=== PATIENT | male | born 1975 | race Caucasian/White ===

== ENCOUNTER → 2016-12-10 | Outpatient (CLI) | payer OTHER ==
[2016-12-10 15:52] VITALS: BP 148/87; PULSE 73; TEMP 97.8; BMI 81.3
--- NOTE | 2016-12-10 16:29 | P.HPBAR ---
Bariatric H&P - History & Physicial H&P Date: 12/10/16 History & Physicial: Visit/CC: initial visit Patient initial contact: Initial weight: Initial weight in pounds: Height: 5 ft 9 in Initial BMI: Last weight: Current weight: 249.839 kg Current weight in pounds: 550.80 Current BMI: 81.3 [place] body weight (based on NIH guidelines): 72.575 kg Excess body weight loss: The patient is a 41 year-old M who presents for Bariatric Assessment. The patient presents today for sleeve gastrectomy consultation. He's had lifetime problems obesity. His current weight is 550 pounds. His BMI is 81. Review of Systems Constitutional: Reports as per HPI Past Medical History Past Medical History: No Reported History History of Any Multi-Drug Resistant Organisms: None Reported Past Surgical History: No Surgical Hx Reported Past Anesthesia/Blood Transfusion Reactions: No Reported Reaction Past Psychological History: No Psychological Hx Reported Smoking Status: Former smoker Past Alcohol Use History: None Reported Past Drug Use History: None Reported Surgical - Exam Vital Signs Temp Pulse BP 97.8 F 73 148/87 12/10/16 15:47 12/10/16 15:47 12/10/16 15:47 - General well developed, no distress - Eyes PERRL - ENT normal pinna - Neck no masses - Respiratory normal expansion - Cardiovascular Rhythm: regular - Abdomen Abdomen: soft, non tender Bariatric Assessment & Plan Plan: Super morbid obesity with BMI of 81. Patient will attempt to lose some weight prior to surgery. He will be scheduled see a psychologist and his family doctor. He'll follow-up in one month. Bariatric Checklist Checklist: Plan: Checklist: EGD: 1. Hiatal hernia: 2. H. Pylori: HgbA1c: Vitamin D: Smoking: Former smoker Primary care physician referral: Psychiatry clearance: Cardiology clearance: Sleep study: Diet journal: VTE risk score: VTE risk level: Rehab needs at discharge:
== END | disposition home or self-care (01) ==
LOC: BARWHC3 14:12
PROVIDERS: ATTEND Surgery
DX: Z01.818 Encounter for other preprocedural examination (principal); E66.01 Morbid (severe) obesity due to excess calories; Z68.45 Body mass index [BMI] 70 or greater, adult; Z87.891 Personal history of nicotine dependence
CPT/HCPCS: 99211

== ENCOUNTER → 2017-01-07 | Outpatient (CLI) | payer OTHER ==
[2017-01-07 18:07] VITALS: BP 154/71; PULSE 76; RESP 18; TEMP 98; BMI 78.4
--- NOTE | 2017-01-08 08:09 | P.HPBAR ---
Bariatric H&P - History & Physicial H&P Date: 01/07/17 History & Physicial: Visit/CC: FANNY, f/u prospective sleeve Patient initial contact: Initial weight: 249.839 kg Initial weight in pounds: 550.80 Height: 5 ft 9 in Initial BMI: 81.3 Last weight: Current weight: 240.903 kg Current weight in pounds: 531.10 Current BMI: 78.4 [place] body weight (based on NIH guidelines): 72.575 kg Excess body weight loss: 5.0% The patient is a 41 year-old M who presents for Bariatric Assessment. Patient presents for bariatric follow. He has lost 19 pounds since his last visit. He has been actively dieting. I discussed the patient had like him to lose 40-70 pounds before surgery. Review of Systems Constitutional: Reports as per HPI Past Medical History Past Medical History: No Reported History History of Any Multi-Drug Resistant Organisms: None Reported Past Surgical History: No Surgical Hx Reported Past Anesthesia/Blood Transfusion Reactions: No Reported Reaction Past Psychological History: No Psychological Hx Reported Smoking Status: Former smoker Past Alcohol Use History: None Reported Past Drug Use History: None Reported Surgical - Exam Vital Signs Temp Pulse Resp BP 98.0 F 76 18 154/71 01/07/17 17:53 01/07/17 17:53 01/07/17 17:53 01/07/17 17:53 - General well developed, no distress - Eyes PERRL - Respiratory normal expansion - Cardiovascular Rhythm: regular - Abdomen Abdomen: soft, non tender Bariatric Assessment & Plan Plan: Super morbid obesity with BMI of 78. Patient will follow-up in one month. He will continue diet. He will need to be authorized for laparoscopic sleeve gastrectomy. Bariatric Checklist Checklist: Plan: Checklist: EGD: 1. Hiatal hernia: 2. H. Pylori: HgbA1c: Vitamin D: Smoking: Former smoker Primary care physician referral: Greer (Romeo) Psychiatry clearance: Cardiology clearance: Sleep study: Diet journal: VTE risk score: VTE risk level: Rehab needs at discharge:
== END ==
LOC: BARWHC3 14:24
PROVIDERS: ATTEND Surgery
DX: E66.01 Morbid (severe) obesity due to excess calories (principal); Z68.45 Body mass index [BMI] 70 or greater, adult; Z87.891 Personal history of nicotine dependence
CPT/HCPCS: 99211

== ENCOUNTER → 2017-02-04 | Outpatient (CLI) | payer OTHER ==
[2017-02-04 15:45] VITALS: BP 129/73; PULSE 60; RESP 16; TEMP 97.9
[2017-02-04 15:49] VITALS: BMI 73.5
--- NOTE | 2017-02-04 16:00 | P.HPBAR ---
Bariatric H&P - History & Physicial H&P Date: 02/04/17 History & Physicial: Visit/CC: Wt check Patient initial contact: Initial weight: 249.839 kg Initial weight in pounds: 550.80 Height: 5 ft 9 in Initial BMI: 81.3 Last weight: Current weight: 226.087 kg Current weight in pounds: 498.00 Current BMI: 73.5 [place] body weight (based on NIH guidelines): 72.575 kg Excess body weight loss: 13.5% The patient is a 42 year-old M who presents for Bariatric Assessment. The patient presents today for bariatric follow-up. He has lost 50 pounds since her initial consultation. The patient has been mainly on a low carb diet. He denies any significant problems with his low caloric/carbonated diet. Past Medical History Past Medical History: No Reported History History of Any Multi-Drug Resistant Organisms: None Reported Past Surgical History: No Surgical Hx Reported Past Anesthesia/Blood Transfusion Reactions: No Reported Reaction Past Psychological History: No Psychological Hx Reported Smoking Status: Former smoker Past Alcohol Use History: None Reported Past Drug Use History: None Reported Surgical - Exam Vital Signs Temp Pulse Resp BP 97.9 F 60 16 129/73 02/04/17 15:39 02/04/17 15:39 02/04/17 15:39 02/04/17 15:39 - General well developed, no distress - Eyes PERRL - ENT normal pinna - Neck no masses - Respiratory normal expansion - Cardiovascular Rhythm: regular - Abdomen Abdomen: soft, non tender Bariatric Assessment & Plan Plan: The patient is doing well. He'll continue his low carbohydrate/calorie diet. He'll follow-up in one month for recheck. He will scheduled for laparoscopic sleeve gastrectomy once his authorizations completed. Bariatric Checklist Checklist: Plan: Checklist: EGD: 1. Hiatal hernia: 2. H. Pylori: HgbA1c: Vitamin D: Smoking: Former smoker Primary care physician referral: Greer (Romeo) Psychiatry clearance: Cardiology clearance: Sleep study: Diet journal: VTE risk score: VTE risk level: Rehab needs at discharge:
== END | disposition home or self-care (01) ==
LOC: BARWHC3 14:14
PROVIDERS: ATTEND Surgery
DX: Z09 Encounter for follow-up examination after completed treatment for conditions other than malignant neoplasm (principal); Z87.891 Personal history of nicotine dependence
CPT/HCPCS: 99211

== ENCOUNTER → 2017-03-04 | Outpatient (CLI) | payer OTHER ==
[2017-03-04 14:05] VITALS: BP 146/75; PULSE 61; RESP 16; TEMP 98; BMI 74.7
--- NOTE | 2017-03-04 16:08 | P.HPBAR ---
Bariatric H&P - History & Physicial H&P Date: 03/04/17 History & Physicial: Visit/CC: Patient initial contact: Initial weight: 249.839 kg Initial weight in pounds: 550.80 Height: 5 ft 9 in Initial BMI: 81.3 Last weight: Current weight: 229.688 kg Current weight in pounds: 506.00 Current BMI: 74.7 [place] body weight (based on NIH guidelines): 72.575 kg Excess body weight loss: 11.4% The patient is a 42 year-old M who presents for Bariatric Assessment. She presents today for bariatric follow-up. He has gained 8 pounds last visit. Patient states he had increased carbohydrate intake. Past Medical History Past Medical History: No Reported History History of Any Multi-Drug Resistant Organisms: None Reported Past Surgical History: No Surgical Hx Reported Past Anesthesia/Blood Transfusion Reactions: No Reported Reaction Past Psychological History: No Psychological Hx Reported Smoking Status: Former smoker Past Alcohol Use History: None Reported Past Drug Use History: None Reported Surgical - Exam Vital Signs Temp Pulse Resp BP 98.0 F 61 16 146/75 03/04/17 13:54 03/04/17 13:54 03/04/17 13:54 03/04/17 13:54 - General well developed, no distress - Eyes PERRL - ENT normal pinna - Neck no masses - Respiratory normal expansion - Cardiovascular Rhythm: regular - Abdomen Abdomen: soft Bariatric Assessment & Plan Plan: The patient will improve his diet. He will decreased carbohydrate take and try to get more exercise. No palpable 1 month. We discussed the importance of losing weight before his sleeve gastrectomy. Bariatric Checklist Checklist: Plan: Checklist: EGD: 1. Hiatal hernia: 2. H. Pylori: HgbA1c: Vitamin D: Smoking: Former smoker Primary care physician referral: Greer (Romeo) Psychiatry clearance: Cardiology clearance: Sleep study: Diet journal: VTE risk score: VTE risk level: Rehab needs at discharge:
== END | disposition home or self-care (01) ==
LOC: BARWHC3 13:39
PROVIDERS: ATTEND Surgery
DX: Z48.815 Encounter for surgical aftercare following surgery on the digestive system (principal); Z98.84 Bariatric surgery status; Z87.891 Personal history of nicotine dependence
CPT/HCPCS: 99211

== ENCOUNTER → 2017-04-08 | Outpatient (CLI) | payer OTHER ==
[2017-04-08 15:12] VITALS: BP 151/75; PULSE 59; RESP 18; TEMP 97.7; BMI 74.1
--- NOTE | 2017-04-22 17:00 | P.HPBAR ---
Bariatric H&P - History & Physicial H&P Date: 04/08/17 History & Physicial: Visit/CC: Working on criteria Patient initial contact: Initial weight: 249.839 kg Initial weight in pounds: 550.80 Height: 5 ft 9 in Initial BMI: 81.3 Last weight: Current weight: 227.788 kg Current weight in pounds: 502.00 Current BMI: 74.1 [place] body weight (based on NIH guidelines): 72.575 kg Excess body weight loss: 12.4% The patient is a 42 year-old M who presents for Bariatric Assessment. Patient presents for preoperative sleeve constipation. He is doing quite well. He has lost 48 pounds since he started coming to the bandage clinic. Past Medical History Past Medical History: No Reported History History of Any Multi-Drug Resistant Organisms: None Reported Past Surgical History: No Surgical Hx Reported Past Anesthesia/Blood Transfusion Reactions: No Reported Reaction Past Psychological History: No Psychological Hx Reported Smoking Status: Former smoker Surgical - Exam Vital Signs Temp Pulse Resp BP 97.7 F 59 L 18 151/75 04/08/17 15:08 04/08/17 15:08 04/08/17 15:08 04/08/17 15:08 - General well developed, no distress - Abdomen Abdomen: soft, non tender Bariatric Assessment & Plan Plan: Super morbid obesity, BMI 74. Patient will be scheduled for EGD. We anticipate doing his sleeve gastrectomy in the near future. Bariatric Checklist Checklist: Plan: Checklist: EGD: 1. Hiatal hernia: 2. H. Pylori: HgbA1c: Vitamin D: Smoking: Former smoker Primary care physician referral: Greer (Romeo) Psychiatry clearance: Cardiology clearance: Sleep study: Diet journal: VTE risk score: VTE risk level: Rehab needs at discharge:
== END | disposition home or self-care (01) ==
LOC: BARWHC3 13:52
PROVIDERS: ATTEND Surgery
DX: Z01.818 Encounter for other preprocedural examination (principal); E66.01 Morbid (severe) obesity due to excess calories; Z87.891 Personal history of nicotine dependence; Z68.45 Body mass index [BMI] 70 or greater, adult
CPT/HCPCS: 99211

== ENCOUNTER 2017-04-22 08:49 | Day surgery (SDC) | payer OTHER ==
[2017-04-18 11:13] VITALS: BMI 73.8
[~2017-04-22 08:49] MED LIST: LACTATED RINGERS 1,000 ML IV SCH
[2017-04-22] MEDS ORDERED: LIDOCAINE 1% 20 ML VIAL (10MG/ML) FOR IV START INTRADERMA ONE (10:25)
[2017-04-22 10:37] VITALS: RESP 18; TEMP 96.6
[2017-04-22] MEDS ORDERED: KETAMINE 10 MG/ML 20 ML VIAL ONE (10:57)
[2017-04-22] MEDS ORDERED: GLYCOPYRROLATE 0.2 MG/ML 2 ML VIAL ONE (10:57)
[2017-04-22] MEDS ORDERED: PROPOFOL 10 MG/ML 20 ML VIAL IV ONE (10:57)
[2017-04-22] MEDS ORDERED: LIDOCAINE 1% INJ 10MG/ML (20 ML MDV) ONE (10:57)
--- NOTE | 2017-04-22 10:59 | P.GSHP ---
History of Present Illness H&P Date: 04/22/17 Chief Complaint: GERD, morbid obesity This is a 42-year-old male presents today for EGD. He presents today for workup of gastric sleeve. He's had history of GERD. His BMI 74. Past Medical History Past Medical History: No Reported History Additional Past Medical History / Comment(s): EDEMA LOWER EXTREMITIES. History of Any Multi-Drug Resistant Organisms: None Reported Past Surgical History: No Surgical Hx Reported Additional Past Surgical History / Comment(s): SURGERY LEFT LEG FOR CELLULITIS ( 10 YRS AGO) Past Anesthesia/Blood Transfusion Reactions: No Reported Reaction Past Psychological History: Depression Smoking Status: Former smoker Past Alcohol Use History: Rare Additional Past Alcohol Use History / Comment(s): QUIT SMOKING 10 YRS AGO. SMOKED <PPD. SMOKED APPROX 10 YRS. Past Drug Use History: None Reported - Past Family History Father Family Medical History: Cancer Additional Family Medical History / Comment(s): PROSTATE CANCER Medications and Allergies Home Medications Medication Instructions Recorded Confirmed Type Furosemide [Lasix] 1 tab PO BID 12/10/16 04/22/17 History Potassium (Unknown Dose) 1 dose PO BID 04/18/17 04/22/17 History Allergies Allergy/AdvReac Type Severity Reaction Status Date / Time amoxicillin Allergy Unknown Rash/Hives Verified 04/22/17 10:39 cephalexin [From Keflex] Allergy Unknown Rash/Hives Verified 04/22/17 10:39 Penicillins Allergy Unknown Rash/Hives Verified 04/22/17 10:39 Surgical - Exam Vital Signs Temp Pulse Resp BP Pulse Ox 96.6 F L 63 18 122/65 99 04/22/17 10:20 04/22/17 10:20 04/22/17 10:20 04/22/17 10:20 04/22/17 10:20 - General well developed, no distress - Eyes PERRL - ENT normal pinna - Neck no masses - Respiratory normal expansion - Cardiovascular Rhythm: regular - Abdomen Abdomen: soft, non tender Assessment and Plan Plan: GERD. We will perform EGD.
--- NOTE | 2017-04-22 11:12 | P.OP ---
Date of Procedure: 04/22/17 Preoperative Diagnosis: Morbid obesity GERD Postoperative Diagnosis: Morbid obesity Mild antral gastritis No evidence of hiatal hernia Procedure(s) Performed: EGD Implants: Anesthesia: MAC Surgeon: You Alejandro Pathology: other (Antrum) Condition: stable Disposition: PACU Indications for Procedure: Operative Findings: Description of Procedure: The patient's placed on the endoscopy table in the lateral position. He received IV sedation. The gastroscope some placed oropharynx past esophagus and stomach. Scope was then placed through the pylorus. Scope was then withdrawn. The first and second portion of duodenum appeared normal. Scope was then brought back and the antrum and this was mildly inflamed. A biopsies was performed. The scope was unretroflexed and remainder stomach appeared normal. The GE junction was at 47 is. The distal esophagus appeared mildly inflamed a biopsies performed. The proximal esophagus appeared normal. Scope was withdrawn for patient.
[2017-04-22 11:30] VITALS: BP 130/71; PULSE 62
== END 2017-04-22 11:54 | disposition home or self-care (01) ==
LOC: ORWHC2ENDO 08:49
PROVIDERS: ATTEND Surgery
DX: K21.0 Gastro-esophageal reflux disease with esophagitis (principal); K29.50 Unspecified chronic gastritis without bleeding; E66.01 Morbid (severe) obesity due to excess calories; Z68.45 Body mass index [BMI] 70 or greater, adult; Z88.0 Allergy status to penicillin; Z88.1 Allergy status to other antibiotic agents; Z79.899 Other long term (current) drug therapy; Z87.891 Personal history of nicotine dependence
CPT/HCPCS: 43239; 88305; 88342; J2001; J2704

== ENCOUNTER → 2017-05-06 | Outpatient (CLI) | payer OTHER ==
[2017-05-06 12:37] VITALS: BMI 74.7
[2017-05-06 13:08] VITALS: BP 145/70; PULSE 63; TEMP 97.7
--- NOTE | 2017-05-06 17:21 | P.HPBAR ---
Bariatric H&P - History & Physicial H&P Date: 05/06/17 History & Physicial: Visit/CC: preop visit Patient initial contact: Initial weight: 249.839 kg Initial weight in pounds: 550.80 Height: 5 ft 9 in Initial BMI: 81.3 Last weight: Current weight: 229.563 kg Current weight in pounds: 506.10 Current BMI: 74.7 [place] body weight (based on NIH guidelines): 72.575 kg Excess body weight loss: 11.4% The patient is a 42 year-old M who presents for Bariatric Assessment. Patient resents today for morbid obesity follow-up. He will be scheduled for sleeve gastrectomy hopefully the next few months. The patient is a scheduled for cardiac clearance. Past Medical History Past Medical History: No Reported History Additional Past Medical History / Comment(s): EDEMA LOWER EXTREMITIES. History of Any Multi-Drug Resistant Organisms: None Reported Past Surgical History: No Surgical Hx Reported Additional Past Surgical History / Comment(s): SURGERY LEFT LEG FOR CELLULITIS ( 10 YRS AGO) Past Anesthesia/Blood Transfusion Reactions: No Reported Reaction Past Psychological History: Depression Smoking Status: Former smoker Past Alcohol Use History: Rare Additional Past Alcohol Use History / Comment(s): QUIT SMOKING 10 YRS AGO. SMOKED <PPD. SMOKED APPROX 10 YRS. Past Drug Use History: None Reported - Past Family History Father Family Medical History: Cancer Additional Family Medical History / Comment(s): PROSTATE CANCER Surgical - Exam Vital Signs Temp Pulse BP 97.7 F 63 145/70 05/06/17 13:04 05/06/17 13:04 05/06/17 13:04 - General well developed, no distress - Eyes PERRL - Abdomen Abdomen: soft, non tender Bariatric Assessment & Plan Plan: RBC BMI 75. Patient will be scheduled for sleeve gastrectomy in the next few weeks. The patient will obtain cardiac clearance. I went over the risks and benefits of procedure including conversion O procedure and injury to the stomach liver spleen vagotomy dysphagia recurrent GERD symptoms. We'll also discuss and possible issues with the gastric staple line such as bleeding, perforation obstruction. Bariatric Checklist Checklist: Plan: Checklist: EGD: 1. Hiatal hernia: 2. H. Pylori: HgbA1c: Vitamin D: Smoking: Former smoker Primary care physician referral: Percy Muse) Psychiatry clearance: Cardiology clearance: Sleep study: Diet journal: VTE risk score: VTE risk level: Rehab needs at discharge:
== END | disposition home or self-care (01) ==
LOC: BARWHC3 08:29
PROVIDERS: ATTEND Surgery
DX: E66.01 Morbid (severe) obesity due to excess calories (principal); K21.9 Gastro-esophageal reflux disease without esophagitis; Z68.45 Body mass index [BMI] 70 or greater, adult; Z87.891 Personal history of nicotine dependence
CPT/HCPCS: 97804; G0463; 99211

== ENCOUNTER → 2017-05-16 | Outpatient (CLI) | payer OTHER ==
[2017-05-16 11:03] LABS: CH 31.4; CHCM 33.3; HCT 43.2 % (39.0-53.0); HDW 2.86; HGB 14.2 gm/dL (13.0-17.5); MCH 31.1 pg (25.0-35.0); MCHC 32.9 g/dL (31.0-37.0); MCV 94.8 fL (80.0-100.0); Mean Platelet Volume 7.4; RBC 4.56 m/uL (4.30-5.90); RDW 14.5 % (11.5-15.5); WBC 6.8 k/uL (3.8-10.6)
[2017-05-16 11:20] LABS: Anion Gap 10 mmol/L; Blood Urea Nitrogen 17 mg/dL (9-20); Calcium 8.8 mg/dL (8.4-10.2); Carbon Dioxide 30 mmol/L (22-30); Chloride 102 mmol/L (98-107); Glucose 79 mg/dL (74-99); Non-African American GFR(MDRD) >60 (>60 ml/min/1.73 sqM); Potassium 4.2 mmol/L (3.5-5.1); Sodium 142 mmol/L (137-145)
== END | disposition home or self-care (01) ==
LOC: LABWHC1 10:34
PROVIDERS: ATTEND Internal Medicine Interventional Cardiology
DX: Z01.812 Encounter for preprocedural laboratory examination (principal); I48.91 Unspecified atrial fibrillation
CPT/HCPCS: 36415; 80048; 84439; 84443; 85027

== ENCOUNTER → 2017-07-01 | Outpatient (CLI) | payer OTHER ==
[2017-07-01 14:25] LABS: Basophils # (A) 0.1 k/uL (0-0.2); Basophils % (A) 1 %; CH 30.4; CHCM 33.4; Eosinophils # (A) 0.2 k/uL (0-0.7); Eosinophils % (A) 2 %; HCT 41.7 % (39.0-53.0); HDW 2.81; HGB 13.6 gm/dL (13.0-17.5); Luc % (Auto) 3; Lymphocytes # (A) 1.3 k/uL (1.0-4.8); Lymphocytes % (A) 19 %; MCH 29.8 pg (25.0-35.0); MCHC 32.6 g/dL (31.0-37.0); MCV 91.3 fL (80.0-100.0); Mean Platelet Volume 7.6; Monocytes # (A) 0.5 k/uL (0-1.0); Monocytes % (A) 8 %; Neutrophils # (A) 4.5 k/uL (1.3-7.7); Neutrophils % (A) 67 %; RBC 4.57 m/uL (4.30-5.90); RDW 13.8 % (11.5-15.5); WBC 6.8 k/uL (3.8-10.6); WBC (Perox) 7.25
[2017-07-01 14:47] LABS: ALT 28 U/L (21-72); AST 32 U/L (17-59); Alkaline Phosphatase 76 U/L (38-126); Anion Gap 8 mmol/L; Blood Urea Nitrogen 19 mg/dL (9-20); Carbon Dioxide 27 mmol/L (22-30); Chloride 103 mmol/L (98-107); Glucose 73 mg/dL (74-99); Non-African American GFR(MDRD) >60 (>60 ml/min/1.73 sqM); Potassium 4.2 mmol/L (3.5-5.1); Sodium 138 mmol/L (137-145); Total Bilirubin 0.8 mg/dL (0.2-1.3); Total Protein 7.1 g/dL (6.3-8.2)
== END | disposition home or self-care (01) ==
LOC: LABPAT 13:48
PROVIDERS: ATTEND Surgery
DX: Z01.812 Encounter for preprocedural laboratory examination (principal)
CPT/HCPCS: 36415; 80053; 85025

== ENCOUNTER 2017-07-25 06:51 | Inpatient (IN) | payer OTHER ==
[2017-07-17 09:13] VITALS: BMI 72.0
[~2017-07-25 06:51] MED LIST changes: +CLINDAMYCIN 900 MG in DEXTROSE 5% IN WATER 50 ML IVPB ONE; +DEXAMETHASONE SOD PHOSPHATE 10 MG/ML 1 ML VIAL IV ONE; +ENOXAPARIN 40 MG/0.4 ML SYRINGE SQ ONE; +GENTAMICIN 500 MG in SODIUM CHLORIDE 0.9% 100 ML IVPB ONE; -LACTATED RINGERS 1,000 ML IV SCH; +ONDANSETRON 4 MG/2 ML VIAL IVP ONE
[2017-07-25] MEDS: LACTATED RINGERS 1,000 ML IV SCH (07:36)
[2017-07-25] MEDS ORDERED: LIDOCAINE 1% 20 ML VIAL (10MG/ML) FOR IV START INTRADERMA ONE (07:37)
[2017-07-25] MEDS ORDERED: METHYLENE BLUE 30 MG in DEXTROSE 5% IN WATER 500 ML IRRIGATION ONE ×2 (07:43)
[2017-07-25] MEDS ORDERED: MIDAZOLAM 2 MG/2 ML VIAL IV ONE (08:13)
[2017-07-25] MEDS ORDERED: MIDAZOLAM 2 MG/2 ML VIAL IVP ONE (08:15)
--- NOTE | 2017-07-25 08:42 | P.GSHP ---
History of Present Illness H&P Date: 07/25/17 Chief Complaint: Orbited Obesity This is a 42-year-old male who presents today for laparoscopic sleeve gastrectomy. Patient's BMI is 72. He has lost approximately 90 pounds prior to surgery. Patient is aware the risk of gastric sleeve surgery. He is aware the risk of gastric staple line disruption, bleeding and scarring. He is also aware of the risk of DVT and pulmonary embolus. Past Medical History Past Medical History: No Reported History, Atrial Fibrillation Additional Past Medical History / Comment(s): NEW HX AFIB-NOT CURRENTLY ON ANY ANTICOAGULANTS. EDEMA LOWER EXTREMITIES. History of Any Multi-Drug Resistant Organisms: None Reported Past Surgical History: No Surgical Hx Reported Additional Past Surgical History / Comment(s): EGD-05/07/17. SURGERY LEFT LEG FOR CELLULITIS (10 YRS AGO) Past Anesthesia/Blood Transfusion Reactions: No Reported Reaction Smoking Status: Former smoker - Past Family History Father Family Medical History: Cancer Additional Family Medical History / Comment(s): PROSTATE CANCER Medications and Allergies Home Medications Medication Instructions Recorded Confirmed Type Furosemide [Lasix] 1 tab PO BID 12/10/16 07/25/17 History Potassium Chloride [Klor-Con 20] 20 meq PO BID 07/19/17 07/25/17 History Allergies Allergy/AdvReac Type Severity Reaction Status Date / Time amoxicillin Allergy Unknown Rash/Hives Verified 07/17/17 09:08 cephalexin [From Keflex] Allergy Unknown Rash/Hives Verified 07/17/17 09:08 Penicillins Allergy Unknown Rash/Hives Verified 07/17/17 09:08 Surgical - Exam Vital Signs Temp Pulse Resp BP Pulse Ox 97.5 F L 71 18 139/73 95 07/25/17 07:23 07/25/17 07:23 07/25/17 07:23 07/25/17 07:23 07/25/17 07:23 BMI 72 - General well developed, no distress - Eyes PERRL - ENT normal pinna - Neck no masses - Respiratory normal expansion - Cardiovascular Rhythm: regular - Abdomen Abdomen: soft, non tender Assessment and Plan Plan: Morbid obesity with BMI of 72. Patient will undergo laparoscopic sleeve gastrectomy today.
[2017-07-25] MEDS ORDERED: fentaNYL (PF) 50 MCG/ML 2 ML AMP ONE (09:17)
[2017-07-25] MEDS ORDERED: NEOSTIGMINE 1 MG/ML 10 ML VIAL ONE (09:17)
[2017-07-25] MEDS ORDERED: MIDAZOLAM 2 MG/2 ML VIAL ONE (09:17)
[2017-07-25] MEDS ORDERED: HYDROmorphone (PF) 1 MG/ML ONE (09:17)
[2017-07-25] MEDS ORDERED: GLYCOPYRROLATE 0.2 MG/ML 2 ML VIAL ONE (09:17)
[2017-07-25] MEDS ORDERED: LIDOCAINE 1% INJ 10MG/ML (20 ML MDV) ONE (09:17)
[2017-07-25] MEDS ORDERED: PROPOFOL 10 MG/ML 20 ML VIAL IV ONE (09:17)
[2017-07-25] MEDS ORDERED: SUCCINYLCHOLINE CHLORIDE VIAL 200 MG/10 ML VIAL IV ONE (09:17)
[2017-07-25] MEDS ORDERED: ROCURONIUM BROMIDE 10 MG/ML 10 ML VIAL IV ONE (09:17)
[2017-07-25] MEDS ORDERED: KETOROLAC 30 MG/ML 1 ML VIAL ONE (09:17)
[2017-07-25] MEDS ORDERED: BUPIVACAINE (PF) 0.25% 30 ML VIAL SQ ONE (09:48)
[2017-07-25] MEDS ORDERED: LIDOCAINE 2%-EPI 1:100,000 20 ML VIAL SQ ONE (09:48)
[2017-07-25] MEDS ORDERED: ENOXAPARIN 30 MG/0.3 ML SYRINGE SQ STA (10:16)
[2017-07-25] MEDS ORDERED: LACTATED RINGERS 1,000 ML IV ONE (10:23)
[2017-07-25] MEDS ORDERED: ONDANSETRON 4 MG/2 ML VIAL IVP PRN (10:55)
[2017-07-25] MEDS ORDERED: NALOXONE 0.4 MG/ML 1 ML VIAL IV PRN (10:55)
[2017-07-25] MEDS ORDERED: HYDROmorphone 1 MG/ML 1 ML SYRINGE IVP PRN (10:55)
--- NOTE | 2017-07-25 10:55 | P.OP ---
Date of Procedure: 07/25/17 Preoperative Diagnosis: Morbid obesity BMI 72 Postoperative Diagnosis: RBC BMI 72 Procedure(s) Performed: Laparoscopic sleeve gastrectomy Anesthesia: ANNY Surgeon: You Alejandro Estimated Blood Loss (ml): 10 Pathology: other (Gastric remnant) Condition: stable Disposition: PACU Description of Procedure: The patient was placed on the operating room table in the supine position. She received general anesthesia and then was placed in dorsal lithotomy position. Her abdomen was prepped and draped in sterile fashion. The skin incision sites were anesthetized 1% local Xylocaine. And then the skin was incised with an 11 blade in the left lateral position. Using a blade less trocar under direct visualization the peritoneal cavity was entered. The abdomen was insufflated and then a 5 mm laparoscope was placed into the peritoneal cavity. A 5 mm trocar was placed in the right epigastric, and right lateral position. A 15 mm trocar was placed in the supra-umbilical position and another 5 mm trocar was placed in the left lateral position. The left lateral lobe of the liver was retracted. The stomach was visualized. The greater curvature of the stomach was then dissected using the Harmonic scissors. The dissection occurred approximately 5 cm from the pylorus to the level of the left benito. There was no hiatal hernia seen. At this point a 40-[place] bougie dilator was placed the oropharynx and passed into the esophagus and into the stomach by the RAIL FLAW DETECTOR OPERATOR. The sleeve gastrectomy was performed by using the powered echelon stapler with a seam guard buttress material. Sequential firings of the stapler were performed. The gastric remnant was then brought out through the 15 mm trocar site. The dilator was withdrawn. And a orogastric tube was replaced into the stomach. The stomach was insufflated with 200 mL of methylene blue normal saline. There was no evidence of extravasation. The abdomen was irrigated there is no bleeding seen. The Estuardo-Viviana device was used to close the 15 mm trocar with 0 Vicryl. Skin was closed with interrupted 3-0 Monocryl sutures once the trochars withdrawn. Dermabond dressing was applied. Patient was sent to recovery in stable condition.
[2017-07-25] MEDS: HYDROmorphone 0.5 MG/0.5 ML SYRINGE IVP PRN ×2 (11:35→11:40)
[2017-07-25] MEDS ORDERED: ACETAMINOPHEN IV (For NPO) 1,000 MG in EMPTY BAG 1 BAG IVPB ONE (12:00)
[2017-07-25] MEDS: ALBUTEROL NEBULIZED 2.5 MG/3 ML INHALATION SCH ×3 (12:06→21:02)
[2017-07-25] MEDS: 0.9% NACL WITH KCL 20 MEQ/L 1,000 ML IV SCH ×2 (13:02→19:29)
[2017-07-25] MEDS: KETOROLAC 30 MG/ML 1 ML VIAL IVP SCH ×2 (13:03→18:37)
[2017-07-25] MEDS: CLINDAMYCIN 900 MG in DEXTROSE 5% IN WATER 50 ML IVPB SCH ×2 (16:40)
[2017-07-25] MEDS ORDERED: ENALAPRILAT 1.25 MG/ML 1 ML VIAL IVP PRN (20:06)
[2017-07-26] MEDS: KETOROLAC 30 MG/ML 1 ML VIAL IVP SCH ×4 (01:33→19:12)
[2017-07-26] MEDS: CLINDAMYCIN 900 MG in DEXTROSE 5% IN WATER 50 ML IVPB SCH ×2 (01:34)
[2017-07-26] MEDS: 0.9% NACL WITH KCL 20 MEQ/L 1,000 ML IV SCH ×2 (01:37→10:10)
[2017-07-26 07:39] LABS: Basophils % (A) 1 %; CH 30.5; CHCM 33.5; Eosinophils % (A) 0 %; HCT 37.2 % (39.0-53.0); HGB 11.2 gm/dL (13.0-17.5); Luc % (Auto) 3; Lymphocytes # (A) 0.8 k/uL (1.0-4.8); Lymphocytes % (A) 11 %; MCH 27.6 pg (25.0-35.0); MCHC 30.1 g/dL (31.0-37.0); MCV 91.7 fL (80.0-100.0); Mean Platelet Volume 7.5; Monocytes # (A) 0.6 k/uL (0-1.0); Monocytes % (A) 8 %; Neutrophils # (A) 5.7 k/uL (1.3-7.7); Neutrophils % (A) 77 %; RBC 4.06 m/uL (4.30-5.90); WBC 7.4 k/uL (3.8-10.6); WBC (Perox) 7.17
[2017-07-26 07:50] LABS: Anion Gap 7 mmol/L; Blood Urea Nitrogen 18 mg/dL (9-20); Calcium 8.5 mg/dL (8.4-10.2); Carbon Dioxide 26 mmol/L (22-30); Chloride 104 mmol/L (98-107); Magnesium 1.8 mg/dL (1.6-2.3); Non-African American GFR(MDRD) >60 (>60 ml/min/1.73 sqM); Potassium 4.4 mmol/L (3.5-5.1); Sodium 137 mmol/L (137-145)
[2017-07-26] MEDS: LACTATED RINGERS 1,000 ML IV SCH (08:19)
[2017-07-26] MEDS ORDERED: diphenhydrAMINE 50 MG/ML 1 ML VIAL IVP STA (08:41)
[2017-07-26] MEDS ORDERED: methylPREDNISolone SOD SUCCI 40 MG/ML 1 ML VIAL IV STA (08:41)
[2017-07-26] MEDS ORDERED: SODIUM CHLORIDE 0.9% 1,000 ML BAG ONE (09:18)
[2017-07-26] MEDS: 1: MVI, ADULT NO.4 WITH VIT K 10 ML, THIAMINE 100 MG, FOLIC ACID 1 MG, POTASSIUM CHLORID IV SCH ×12 (09:18→20:33)
[2017-07-26] MEDS: FUROSEMIDE 10 MG/ML 4 ML VIAL IV SCH (09:22)
[2017-07-26] MEDS: PANTOPRAZOLE 40 MG/10 ML VIAL IV SCH (09:22)
[2017-07-26] MEDS: ENOXAPARIN 40 MG/0.4 ML SYRINGE SQ SCH ×2 (09:22→20:33)
[2017-07-26] MEDS ORDERED: HYDROcodone/APAP 15 ML SOLUTION PO PRN (09:35)
[2017-07-26] MEDS: ALBUTEROL NEBULIZED 2.5 MG/3 ML INHALATION SCH ×4 (09:53→20:08)
--- NOTE | 2017-07-26 13:08 | P.HPIM ---
History of Present Illness H&P Date: 07/26/17 Chief Complaint: morbid obesity This is a 42-year-old male patient who presented to the hospital for a elective laparoscopic sleeve gastrectomy. The patient's BMI was 72. He had lost approximately 90 pounds prior to the surgery. His surgery was yesterday on 09/2017 please be sure to surgical notes for details. Upon examination the patient is resting up in bed on room air denies any shortness of breath cough or congestion. Patient has been up ambulating in the room. Currently the patient is nothing by mouth as he will be undergoing an upper GI study this afternoon. Patient is afebrile, no further complaints. Labs and reports have been reviewed. Review of Systems 14 point review of systems was completed and is negative unless noted above in the HPI. Past Medical History Past Medical History: No Reported History, Atrial Fibrillation Additional Past Medical History / Comment(s): NEW HX AFIB-NOT CURRENTLY ON ANY ANTICOAGULANTS. EDEMA LOWER EXTREMITIES. History of Any Multi-Drug Resistant Organisms: None Reported Past Surgical History: No Surgical Hx Reported Additional Past Surgical History / Comment(s): EGD-05/07/17. SURGERY LEFT LEG FOR CELLULITIS (10 YRS AGO) Past Anesthesia/Blood Transfusion Reactions: No Reported Reaction Past Psychological History: Depression Smoking Status: Former smoker Past Alcohol Use History: None Reported Additional Past Alcohol Use History / Comment(s): QUIT SMOKING 2006. SMOKED < PPD. SMOKED APPROX 10 YRS. Past Drug Use History: None Reported - Past Family History Father Family Medical History: Cancer Additional Family Medical History / Comment(s): PROSTATE CANCER Mother Family Medical History: AFIB Medications and Allergies Home Medications Medication Instructions Recorded Confirmed Type Furosemide [Lasix] 40 mg PO BID 12/10/16 07/25/17 History Potassium Chloride [Klor-Con 20] 20 meq PO BID 07/19/17 07/25/17 History Allergies Allergy/AdvReac Type Severity Reaction Status Date / Time amoxicillin Allergy Unknown Rash/Hives Verified 07/17/17 09:08 cephalexin [From Keflex] Allergy Unknown Rash/Hives Verified 07/17/17 09:08 Penicillins Allergy Unknown Rash/Hives Verified 07/17/17 09:08 Iodinated Contrast- Oral and Allergy Rash/Hives Verified 07/26/17 08:38 IV Dye Physical Exam Vitals: Vital Signs Temp Pulse Pulse Pulse Resp BP Pulse Ox 07/26/17 11:09 85 07/26/17 11:02 101 H 22 93 L 07/26/17 07:00 98.2 F 64 16 123/77 98 07/26/17 02:02 98.2 F 77 17 129/64 97 07/26/17 00:55 90 L 07/26/17 00:36 97 07/25/17 21:11 76 07/25/17 21:02 76 07/25/17 19:30 98.0 F 77 18 170/82 98 07/25/17 16:40 88 07/25/17 16:32 88 98 07/25/17 16:00 79 70 16 07/25/17 14:15 70 142/75 96 07/25/17 13:26 97 07/25/17 12:45 80 137/64 92 L Intake and Output 07/25/17 07/26/17 07/26/17 22:59 06:59 14:59 Intake Total 1350 Balance 1350 Intake: Intake, IV Titration 1350 Amount 0.9% NaCl with KCl 20 Meq 1350 /l 1,000 ml @ 150 mls/hr IV .Q6H40M [facility] Rx#: [id number] Other: Voiding Method Toilet # Voids 1 1 Weight 221.353 kg 221.353 kg Patient Weight 07/27/17 06:59 Weight 221.353 kg GENERAL EXAM: Alert, morbidly obese, comfortable in no apparent distress. HEAD: Normocephalic. EYES: Normal reaction of pupils, equal size. NOSE: Clear with pink turbinates. THROAT: No erythema or exudates. NECK: No masses, no JVD. CHEST: No chest wall deformity. LUNGS: Equal air entry with no crackles, wheeze, rhonchi or dullness. Bases Diminished CVS: S1 and S2 normal with no audible mumurs, regular rhythm. ABDOMEN: No hepatosplenomegaly, normal bowel sounds, no guarding or rigidity. EXTREMITIES: No edema noted, pedal pulses palpable. SKIN: No rashes CENTRAL NERVOUS SYSTEM: No focal deficits, tone is normal in all 4 extremities. Results CBC & Chem 7: 07/26/17 07:15 07/26/17 07:10 Labs: Abnormal Lab Results - Last 24 Hours (Table) 07/26/17 Range/Units 07:15 RBC 4.06 L (4.30-5.90) m/uL Hgb 11.2 L (13.0-17.5) gm/dL Hct 37.2 L (39.0-53.0) % MCHC 30.1 L (31.0-37.0) g/dL Lymphocytes # 0.8 L (1.0-4.8) k/uL Thrombosis Risk Factor Assmnt - DVT/VTE Prophylaxis DVT/VTE Prophylaxis: Pharmacologic Prophylaxis ordered - Choose All That Apply Any of the Below Risk Factors Present?: Yes Each Factor Represents 1 point: Age 41-60 years, Obesity (BMI >25) Other Risk Factors: Yes Each Risk Factor Represents 2 Points: Major surgery Thrombosis Risk Factor Assessment Total Risk Factor Score: 4 Thrombosis Risk Factor Assessment Level: Moderate Risk Assessment and Plan Plan: Assessment Morbid obesity Status post laparoscopic sleeve gastrectomy Bilateral lower extremity edema History of hypertension History of atrial fibrillation, currently not on any anticoagulants Plan Medications have been reviewed and will be continued as ordered. Patient will undergo an upper GI study today, patient's diet will be advanced per surgical recommendations.. Patient is postop day 1. Post surgical recommendations per surgical services. She and encourage incentive spirometer. Continue with pulmonary hygiene, coughing and deep breathing exercises, and supportive care. GI and DVT prophylaxis. We will continue to monitor labs/results and adjust treatment as necessary. Further recommendations pending. I performed an examination of the patient and discussed their management with the nurse practitioner. I have reviewed the nurse practitioner's note and agree with the documented findings and plan of care.
--- NOTE | 2017-07-26 14:24 | P.PN ---
Subjective Progress Note Date: 07/26/17 42-year-old male seen and examined. Sitting up in a chair Patient is postop elective laparoscopic sleeve gastrectomy for morbid obesity BMI 72 patient just returned from his upper GI exam no acute findings patient denies any shortness of breath dizziness lightheadedness or chest pain. Patient is up ambulating and tolerating activity no fever. Objective - Vital Signs Vital signs: Vital Signs Temp 98.2 F 07/26/17 07:00 Pulse 85 07/26/17 11:09 Resp 22 07/26/17 11:02 BP 123/77 07/26/17 07:00 Pulse Ox 93 L 07/26/17 11:02 Intake & Output 07/25/17 07/26/17 07/26/17 18:59 06:59 18:59 Intake Total 2068.5 1350 Output Total 10 Balance 2058.5 1350 Weight 221.353 kg 221.353 kg Intake: IV 2068.5 Intake, IV Titration 1350 Amount 0.9% NaCl with KCl 20 Meq 1350 /l 1,000 ml @ 150 mls/hr IV .Q6H40M [facility] Rx#: [id number] Output: Estimated Blood Loss 10 Other: Voiding Method Toilet Toilet # Voids 1 1 - Exam Physical exam 42-year-old male sitting up in a chair pleasant cooperative talkative appears in no acute distress Lungs essentially clear with adequate air movement Heart S1-S2 audible and regular Abdomen obese soft surgical site dry no redness denies nausea vomiting states passing gas no stool Extremities edema noted to the bilateral lower extreme - Labs CBC & Chem 7: 07/26/17 07:15 07/26/17 07:10 Labs: Abnormal Lab Results - Last 24 Hours (Table) 07/26/17 Range/Units 07:15 RBC 4.06 L (4.30-5.90) m/uL Hgb 11.2 L (13.0-17.5) gm/dL Hct 37.2 L (39.0-53.0) % MCHC 30.1 L (31.0-37.0) g/dL Lymphocytes # 0.8 L (1.0-4.8) k/uL Assessment and Plan Plan: Impression Super morbid obesity BMI 72 Status post laparoscopic sleeve gastrectomy for morbid obesity Hypertension essential History of paroxysmal atrial fibrillation on no anticoagulation Plan Continue postop surgical care Continue with the bariatric diet as ordered Pain control DVT and GI prophylaxis The above impression and plan of care have been discussed and directed by signing physician. Racheal Castillo nurse practitioner acting as scribe for signing physician.
--- NOTE | 2017-07-26 15:02 | FL ---
SINGLE CONTRAST UPPER GI EXAMINATION: CLINICAL HISTORY: 42-year-old male status post bariatric surgery, sleep sternotomy. TECHNIQUE: Single contrast exam performed with 50 ml Omnipaque 350 contrast. Total fluoroscopy time: 45 seconds. Total images: 25. FINDINGS: The patient swallowed oral contrast without difficulty or delay. Esophageal peristalsis and motility are within normal limits. There is initial passage of contrast into the proximal stomach across the GE junction. Postsurgical c hanges of sleeve gastrectomy are demonstrated. Subsequently, there is progressive pooling of contrast in the esophagus. Trickle flow is noted into the distal stomach after which passage stops and there are repeated episodes of intraesophageal reflux. Contrast remains pooled up to the upper third esopha geal level. Imaging was recommenced after 10 minutes and shows minimal residual in the distal esophagus and most of the contrast passed into the proximal small bowel. There is no evidence evidence of contrast extravasation to suggest leak. Trace post surgical free air on the right. IMPRESSION: 1. No evidence of leak status post sleeve gastrectomy. 2. Moderate postsurgical obstruction. Contrast has passed when imaging was recommenced after 10 minut es. 3. Trace post surgical free air.
[2017-07-27 03:16] VITALS: RESP 16
[2017-07-27] MEDS: KETOROLAC 30 MG/ML 1 ML VIAL IVP SCH ×2 (04:01→10:30)
[2017-07-27 07:57] LABS: ALT 37 U/L (21-72); AST 20 U/L (17-59); Alkaline Phosphatase 48 U/L (38-126); Anion Gap 11 mmol/L; Blood Urea Nitrogen 17 mg/dL (9-20); Calcium 8.8 mg/dL (8.4-10.2); Carbon Dioxide 25 mmol/L (22-30); Chloride 102 mmol/L (98-107); Glucose 66 mg/dL (74-99); Non-African American GFR(MDRD) >60 (>60 ml/min/1.73 sqM); Potassium 4.3 mmol/L (3.5-5.1); Sodium 138 mmol/L (137-145); Total Bilirubin 0.6 mg/dL (0.2-1.3); Total Protein 6.3 g/dL (6.3-8.2)
[2017-07-27 08:01] LABS: Basophils % (A) 0 %; CH 29.5; CHCM 32.7; Eosinophils % (A) 1 %; HCT 38.5 % (39.0-53.0); HDW 2.73; HGB 12.4 gm/dL (13.0-17.5); Luc # (Auto) 0.15; Luc % (Auto) 2; Lymphocytes # (A) 1.5 k/uL (1.0-4.8); Lymphocytes % (A) 19 %; MCH 29.2 pg (25.0-35.0); MCHC 32.2 g/dL (31.0-37.0); MCV 90.8 fL (80.0-100.0); Mean Platelet Volume 8.7; Monocytes # (A) 0.8 k/uL (0-1.0); Monocytes % (A) 10 %; Neutrophils # (A) 5.4 k/uL (1.3-7.7); Neutrophils % (A) 68 %; RBC 4.24 m/uL (4.30-5.90); RDW 12.9 % (11.5-15.5); WBC 7.9 k/uL (3.8-10.6); WBC (Perox) 7.87
[2017-07-27] MEDS: ALBUTEROL NEBULIZED 2.5 MG/3 ML INHALATION SCH ×2 (08:23→12:11)
--- NOTE | 2017-07-27 10:47 | P.PN ---
Subjective Progress Note Date: 07/27/17 07/27/17- This patient is being seen and examined for Dr. Austin Page. this patient is sitting up in bed on room air. He is postop day 1 after laparoscopic sleeve gastrectomy. the patient is doing well. He denies any shortness of breath cough or congestion. He is tolerating his diet well. Has minimal postop pain. afebrile, no further complaints. states that he is looking forward to discharge. 07/26/17- This patient is being seen and examined for Dr. Austin Page. This is a 42-year-old male patient who presented to the hospital for a elective laparoscopic sleeve gastrectomy. The patient's BMI was 72. He had lost approximately 90 pounds prior to the surgery. His surgery was yesterday on 09/2017 please be sure to surgical notes for details. Upon examination the patient is resting up in bed on room air denies any shortness of breath cough or congestion. Patient has been up ambulating in the room. Currently the patient is nothing by mouth as he will be undergoing an upper GI study this afternoon. Patient is afebrile, no further complaints. Labs and reports have been reviewed. Objective - Vital Signs Vital signs: Vital Signs Temp 97.6 F 07/27/17 01:05 Pulse 84 07/27/17 08:33 Resp 16 07/27/17 01:05 BP 144/72 07/27/17 01:05 Pulse Ox 94 L 07/27/17 01:05 Intake & Output 07/26/17 07/27/17 07/27/17 18:59 06:59 18:59 Intake Total 800 350 Balance 800 350 Weight 221.353 kg Intake: IV 800 350 0.9% NaCl with KCl 20 Meq 800 350 /l 1,000 ml @ 100 mls/hr IV .BY DURATION [facility] Rx#: [id number] Other: # Voids 2 1 - Exam GENERAL EXAM: Alert, morbidly obese, comfortable in no apparent distress. HEAD: Normocephalic. EYES: Normal reaction of pupils, equal size. NOSE: Clear with pink turbinates. THROAT: No erythema or exudates. NECK: No masses, no JVD. CHEST: No chest wall deformity. LUNGS: Equal air entry with no crackles, wheeze, rhonchi or dullness. Bases Diminished CVS: S1 and S2 normal with no audible mumurs, regular rhythm. ABDOMEN: No hepatosplenomegaly, normal bowel sounds, no guarding or rigidity. EXTREMITIES: No edema noted, pedal pulses palpable. SKIN: No rashes CENTRAL NERVOUS SYSTEM: No focal deficits, tone is normal in all 4 extremities. - Labs CBC & Chem 7: 07/27/17 06:51 07/27/17 06:51 Labs: Abnormal Lab Results - Last 24 Hours (Table) 07/27/17 07/27/17 Range/Units 06:51 06:51 RBC 4.24 L (4.30-5.90) m/uL Hgb 12.4 L (13.0-17.5) gm/dL Hct 38.5 L (39.0-53.0) % Glucose 66 L (74-99) mg/dL Albumin 3.3 L (3.5-5.0) g/dL Assessment and Plan Plan: Assessment Morbid obesity Status post laparoscopic sleeve gastrectomy Bilateral lower extremity edema History of hypertension History of atrial fibrillation, currently not on any anticoagulants Plan can be cleared for discharge from a medical standpoint. Surgeon to provide discharge as well as orders and instructions. Medications have been reviewed and will be continued as ordered. patient's diet will be advanced per surgical recommendations. Post surgical recommendations per surgical services. She and encourage incentive spirometer. Continue with pulmonary hygiene, coughing and deep breathing exercises, and supportive care. GI and DVT prophylaxis. We will continue to monitor labs/results and adjust treatment as necessary. Further recommendations pending. I performed an examination of the patient and discussed their management with the nurse practitioner. I have reviewed the nurse practitioner's note and agree with the documented findings and plan of care.
[2017-07-27 10:49] VITALS: BP 117/79; TEMP 97.8
[2017-07-27] MEDS: ENOXAPARIN 40 MG/0.4 ML SYRINGE SQ SCH (10:50)
[2017-07-27] MEDS: FUROSEMIDE 10 MG/ML 4 ML VIAL IV SCH (10:50)
[2017-07-27] MEDS: PANTOPRAZOLE 40 MG/10 ML VIAL IV SCH (10:50)
--- NOTE | 2017-07-27 11:25 | P.DS ---
Providers Date of admission: 07/25/17 06:51 Expected date of discharge: 07/27/17 Attending physician: You Alejandro Consults: 07/25/17 10:55 Consult Physician Routine Consulting Provider: Austin Page Consult Reason/Comments: Medical management Do you want consulting provider notified?: Yes Primary care physician: Ty Diaz MD Hospital Course: This a 42-year-old male who underwent laparoscopic sleeve yesterday. Patient did well postoperatively. Please see hospital chart for details. Procedures: Laparoscopic sleeve gastrectomy Patient Condition at Discharge: Good Plan - Discharge Summary New Discharge Prescriptions: New Docusate [Colace] 100 mg PO BID #20 capsule HYDROcodone/APAP 7.5-325MG [[place] 7.5] 1 each PO Q4H PRN #60 tab PRN Reason: Pain Omeprazole 40 mg PO DAILY #60 capsule. Ondansetron [Zofran] 4 mg PO Q8HR PRN #30 tab PRN Reason: Nausea No Action Furosemide [Lasix] 40 mg PO BID Potassium Chloride [Klor-Con 20] 20 meq PO BID Discharge Medication List Furosemide [Lasix] 40 mg PO BID 12/10/16 [History] Potassium Chloride [Klor-Con 20] 20 meq PO BID 07/19/17 [History] Docusate [Colace] 100 mg PO BID #20 capsule 07/27/17 [Rx] HYDROcodone/APAP 7.5-325MG [[place] 7.5] 1 each PO Q4H PRN #60 tab 07/27/17 [Rx] Omeprazole 40 mg PO DAILY #60 capsule. 07/27/17 [Rx] Ondansetron [Zofran] 4 mg PO Q8HR PRN #30 tab 07/27/17 [Rx] Follow up Appointment(s)/Referral(s): [facility] [[facility]FF] - 2 Weeks
[2017-07-27 12:04] VITALS: PULSE 69
[2017-07-27] MEDS: 1: MVI, ADULT NO.4 WITH VIT K 10 ML, THIAMINE 100 MG, FOLIC ACID 1 MG, POTASSIUM CHLORID IV SCH ×6 (12:04)
== END 2017-07-27 13:55 | disposition home or self-care (01) | DRG 621 ==
LOC: 2ORWHC 06:51 → 3SUR 11:29
PROVIDERS: ADMIT Surgery; ATTEND Surgery
PROC: 0DB64Z3 Excision of Stomach, Percutaneous Endoscopic Approach, Vertical (ICD-10-PCS; principal; 2017-07-25 08:40)
DX: E66.01 Morbid (severe) obesity due to excess calories (principal); I10 Essential (primary) hypertension; Z68.45 Body mass index [BMI] 70 or greater, adult; Z87.891 Personal history of nicotine dependence; Z88.0 Allergy status to penicillin; Z88.1 Allergy status to other antibiotic agents; Z91.041 Radiographic dye allergy status; Z82.49 Family history of ischemic heart disease and other diseases of the circulatory system
CPT/HCPCS: 74240; 80051; 80053; 82310; 82565; 83735; 84100; 84520; 85025; 88307; 88341; 88342; 94640; 94762

== ENCOUNTER → 2017-09-02 | Outpatient (CLI) | payer OTHER ==
[2017-09-02 13:55] VITALS: BP 121/79; PULSE 80; RESP 16; TEMP 97.7; BMI 59.5
--- NOTE | 2017-09-02 14:45 | P.HPBAR ---
Bariatric H&P - History & Physicial H&P Date: 09/02/17 History & Physicial: Visit/CC: sleeve 07/25 Patient initial contact: Initial weight: 249.839 kg Initial weight in pounds: 550.80 Height: 5 ft 9 in Initial BMI: 81.3 Last weight: 424 Current weight: 182.798 kg Current weight in pounds: 403.00 Current BMI: 59.5 [place] body weight (based on NIH guidelines): 72.575 kg Excess body weight loss: 37.8% The patient is a 42 year-old M who presents for Bariatric Assessment. Patient presents today for sleeve gastrectomy fall. He is doing quite well. He lost another 21 pounds. He currently weighs 43 pounds. He denies any dysphagia. He has some minimal GERD. Past Medical History Past Medical History: No Reported History Additional Past Medical History / Comment(s): EDEMA LOWER EXTREMITIES. History of Any Multi-Drug Resistant Organisms: None Reported Past Surgical History: No Surgical Hx Reported Additional Past Surgical History / Comment(s): SURGERY LEFT LEG FOR CELLULITIS ( 10 YRS AGO) Past Anesthesia/Blood Transfusion Reactions: No Reported Reaction Past Psychological History: Depression Smoking Status: Former smoker Past Alcohol Use History: Rare Additional Past Alcohol Use History / Comment(s): QUIT SMOKING 10 YRS AGO. SMOKED <PPD. SMOKED APPROX 10 YRS. Past Drug Use History: None Reported - Past Family History Father Family Medical History: Cancer Additional Family Medical History / Comment(s): PROSTATE CANCER Mother Family Medical History: AFIB Surgical - Exam Vital Signs Temp Pulse Resp BP 97.7 F 80 16 121/79 09/02/17 13:43 09/02/17 13:43 09/02/17 13:43 09/02/17 13:43 - General well developed, no distress - Eyes PERRL - ENT normal pinna - Neck no masses - Respiratory normal expansion - Cardiovascular Rhythm: regular - Abdomen Abdomen: soft, non tender Bariatric Assessment & Plan Plan: This was sleeve yesterday. Patient doing quite well. His GERD is minimal. He will follow-up in one month. Bariatric Checklist Checklist: Plan: Checklist: EGD: 1. Hiatal hernia: 2. H. Pylori: HgbA1c: Vitamin D: Smoking: Former smoker Primary care physician referral: Greer ([place]) Psychiatry clearance: Cardiology clearance: Sleep study: Diet journal: VTE risk score: VTE risk level: Rehab needs at discharge:
== END | disposition home or self-care (01) ==
LOC: BARWHC3 13:21
PROVIDERS: ATTEND Surgery
DX: Z48.815 Encounter for surgical aftercare following surgery on the digestive system (principal); K21.9 Gastro-esophageal reflux disease without esophagitis; E66.01 Morbid (severe) obesity due to excess calories; Z68.43 Body mass index [BMI] 50.0-59.9, adult; Z71.3 Dietary counseling and surveillance; Z87.891 Personal history of nicotine dependence; Z98.84 Bariatric surgery status
CPT/HCPCS: 97803; G0463; 99211

== ENCOUNTER → 2017-10-28 | Outpatient (CLI) | payer OTHER ==
[2017-10-28 13:14] VITALS: BP 142/85; PULSE 73; RESP 16; TEMP 97.7; BMI 56.5
[2017-10-28 15:18] LABS: HCT 45.4 % (39.0-53.0); MCH 29.1 pg (25.0-35.0); MCV 88.2 fL (80.0-100.0); Mean Platelet Volume 8.2; Platelet Count 216 k/uL (150-450); RBC 5.15 m/uL (4.30-5.90); RDW 12.9 % (11.5-15.5); WBC 8.1 k/uL (3.8-10.6)
--- NOTE | 2017-10-28 16:11 | P.HPBAR ---
Bariatric H&P - History & Physicial H&P Date: 10/28/17 History & Physicial: Visit/CC: sleeve follow-up Patient initial contact: Initial weight: 249.839 kg Initial weight in pounds: 550.80 Height: 5 ft 9 in Initial BMI: 81.3 Last weight: Current weight: 173.726 kg Current weight in pounds: 383.00 Current BMI: 56.5 [place] body weight (based on NIH guidelines): 72.575 kg Excess body weight loss: 42.9% The patient is a 42 year-old M who presents for Bariatric Assessment. The patient presents today for sleeve gastrectomy fall. The patient is doing well. He has minimal complaints. He's had some mild GERD. He lost another 9 pounds since his last visit. Past Medical History Past Medical History: No Reported History Additional Past Medical History / Comment(s): EDEMA LOWER EXTREMITIES. History of Any Multi-Drug Resistant Organisms: None Reported Past Surgical History: No Surgical Hx Reported Additional Past Surgical History / Comment(s): SURGERY LEFT LEG FOR CELLULITIS ( 10 YRS AGO) Past Anesthesia/Blood Transfusion Reactions: No Reported Reaction Past Psychological History: Depression Smoking Status: Former smoker Past Alcohol Use History: Rare Additional Past Alcohol Use History / Comment(s): QUIT SMOKING 10 YRS AGO. SMOKED <PPD. SMOKED APPROX 10 YRS. Past Drug Use History: None Reported - Past Family History Father Family Medical History: Cancer Additional Family Medical History / Comment(s): PROSTATE CANCER Mother Family Medical History: AFIB Surgical - Exam Vital Signs Temp Pulse Resp BP 97.7 F 73 16 142/85 10/28/17 13:12 10/28/17 13:12 10/28/17 13:12 10/28/17 13:12 - General well developed, no distress - Eyes PERRL - ENT normal pinna - Neck no masses - Respiratory normal expansion - Cardiovascular Rhythm: regular - Abdomen Abdomen: soft, non tender Results - Labs 10/28/17 14:21 Bariatric Assessment & Plan Plan: Final sleeve gastrectomy. Patient did well. His GERD symptoms are minimal we observed. He'll follow-up in one month. Bariatric Checklist Checklist: Plan: Checklist: EGD: 1. Hiatal hernia: 2. H. Pylori: HgbA1c: Vitamin D: Smoking: Former smoker Primary care physician referral: White ([place]) Psychiatry clearance: Cardiology clearance: Sleep study: Diet journal: VTE risk score: VTE risk level: Rehab needs at discharge:
[2017-10-29 11:34] LABS: Vitamin D 25 Hydroxy 34.1 ng/mL (30.0-100.0)
[2017-10-29 14:28] LABS: Folate, Serum 9.4 ng/mL
[2017-10-29 14:57] LABS: Vitamin A 22 ug/dL (38-106)
[2017-10-30 06:57] LABS: Vitamin B1 62 ug/L (38-122)
== END | disposition home or self-care (01) ==
LOC: BARWHC3 12:56
PROVIDERS: ATTEND Surgery
DX: Z48.815 Encounter for surgical aftercare following surgery on the digestive system (principal); E66.01 Morbid (severe) obesity due to excess calories; K21.9 Gastro-esophageal reflux disease without esophagitis; E55.9 Vitamin D deficiency, unspecified; Z71.3 Dietary counseling and surveillance; Z68.43 Body mass index [BMI] 50.0-59.9, adult; Z98.84 Bariatric surgery status; Z87.891 Personal history of nicotine dependence
CPT/HCPCS: 84134; 84425; 82607; 82746; 83735; 84590; 85027; 82306; 97803; 36415; G0463; 99211

== ENCOUNTER → 2017-12-09 | Outpatient (CLI) | payer OTHER ==
[2017-12-09 15:29] VITALS: BP 136/89; PULSE 75; TEMP 98.7; BMI 54.5
--- NOTE | 2017-12-10 11:30 | P.HPBAR ---
Bariatric H&P - History & Physicial H&P Date: 12/09/17 History & Physicial: Visit/CC: four month follow up visit Patient initial contact: Initial weight: 249.839 kg Initial weight in pounds: 550.80 Height: 5 ft 9 in Initial BMI: 81.3 Last weight: Current weight: 167.376 kg Current weight in pounds: 369.00 Current BMI: 54.5 [place] body weight (based on NIH guidelines): 72.575 kg Excess body weight loss: 46.5% The patient is a 42 year-old M who presents for Bariatric Assessment. The patient presents today for sleeve gastrectomy fall. He's had some minimal GERD. He's doing very well from his weight loss. Past Medical History Past Medical History: No Reported History Additional Past Medical History / Comment(s): EDEMA LOWER EXTREMITIES. History of Any Multi-Drug Resistant Organisms: None Reported Past Surgical History: No Surgical Hx Reported Additional Past Surgical History / Comment(s): SURGERY LEFT LEG FOR CELLULITIS ( 10 YRS AGO) Past Anesthesia/Blood Transfusion Reactions: No Reported Reaction Past Psychological History: Depression Smoking Status: Former smoker Past Alcohol Use History: Rare Additional Past Alcohol Use History / Comment(s): QUIT SMOKING 10 YRS AGO. SMOKED <PPD. SMOKED APPROX 10 YRS. Past Drug Use History: None Reported - Past Family History Father Family Medical History: Cancer Additional Family Medical History / Comment(s): PROSTATE CANCER Mother Family Medical History: AFIB Surgical - Exam Vital Signs Temp Pulse BP 98.7 F 75 136/89 12/09/17 15:21 12/09/17 15:21 12/09/17 15:21 - General well developed, no distress - Eyes PERRL - ENT normal pinna - Neck no masses - Respiratory normal expansion - Cardiovascular Rhythm: regular - Abdomen Abdomen: soft, non tender Bariatric Assessment & Plan Plan: Status post sleeve yesterday. Patient is doing well. He'll follow-up one month. His GERD is minimal will be observed. Bariatric Checklist Checklist: Plan: Checklist: EGD: 1. Hiatal hernia: 2. H. Pylori: HgbA1c: Vitamin D: Smoking: Former smoker Primary care physician referral: Greer ([place]) Psychiatry clearance: Cardiology clearance: Sleep study: Diet journal: VTE risk score: VTE risk level: Rehab needs at discharge:
== END | disposition home or self-care (01) ==
LOC: BARWHC3 14:04
PROVIDERS: ATTEND Surgery
DX: Z48.815 Encounter for surgical aftercare following surgery on the digestive system (principal); Z87.891 Personal history of nicotine dependence; Z98.84 Bariatric surgery status
CPT/HCPCS: 99211

== ENCOUNTER → 2017-12-30 | Outpatient (CLI) | payer OTHER ==
[2017-12-30 15:02] VITALS: BP 117/80; PULSE 74; TEMP 98.2; BMI 52.5
--- NOTE | 2017-12-30 16:23 | P.HPBAR ---
Bariatric H&P - History & Physicial H&P Date: 12/30/17 History & Physicial: Visit/CC: 9 monthfollow up Patient initial contact: Initial weight: 249.839 kg Initial weight in pounds: 550.80 Height: 5 ft 9 in Initial BMI: 81.3 Last weight: Current weight: 161.479 kg Current weight in pounds: 356.00 Current BMI: 52.5 [place] body weight (based on NIH guidelines): 72.575 kg Excess body weight loss: 49.8% The patient is a 42 year-old M who presents for Bariatric Assessment. Patient presents today for sleeve gastrectomy fall. He has done very well with weight loss. He's had minimal GERD. He denies any significant dysphagia. He states his arthritis has improved. Past Medical History Past Medical History: No Reported History Additional Past Medical History / Comment(s): EDEMA LOWER EXTREMITIES. History of Any Multi-Drug Resistant Organisms: None Reported Past Surgical History: No Surgical Hx Reported Additional Past Surgical History / Comment(s): SURGERY LEFT LEG FOR CELLULITIS ( 10 YRS AGO) Past Anesthesia/Blood Transfusion Reactions: No Reported Reaction Past Psychological History: Depression Smoking Status: Former smoker Past Alcohol Use History: Rare Additional Past Alcohol Use History / Comment(s): QUIT SMOKING 10 YRS AGO. SMOKED <PPD. SMOKED APPROX 10 YRS. Past Drug Use History: None Reported - Past Family History Father Family Medical History: Cancer Additional Family Medical History / Comment(s): PROSTATE CANCER Mother Family Medical History: AFIB Surgical - Exam Vital Signs Temp Pulse BP 98.2 F 74 117/80 12/30/17 14:17 12/30/17 14:17 12/30/17 14:17 - General well developed, no distress - Eyes PERRL - ENT normal pinna - Neck no masses - Respiratory normal expansion - Abdomen Abdomen: soft Bariatric Assessment & Plan Plan: Status post sleeve gastrectomy. Patient is doing quite well. His GERD is minimal and will be observed. He'll follow-up in 4 weeks. Bariatric Checklist Checklist: Plan: Checklist: EGD: 1. Hiatal hernia: 2. H. Pylori: HgbA1c: Vitamin D: Smoking: Former smoker Primary care physician referral: Greer ([place]) Psychiatry clearance: Cardiology clearance: Sleep study: Diet journal: VTE risk score: VTE risk level: Rehab needs at discharge:
== END | disposition home or self-care (01) ==
LOC: BARWHC3 13:24
PROVIDERS: ATTEND Surgery
DX: Z48.815 Encounter for surgical aftercare following surgery on the digestive system (principal); Z87.891 Personal history of nicotine dependence; K21.9 Gastro-esophageal reflux disease without esophagitis
CPT/HCPCS: 99211

== ENCOUNTER → 2018-02-03 | Outpatient (CLI) | payer OTHER ==
[2018-02-03 13:09] VITALS: BMI 51.8
[2018-02-03 13:22] VITALS: BP 123/86; PULSE 87; RESP 16; TEMP 98.8
== END | disposition home or self-care (01) ==
LOC: BARWHC3 12:20
PROVIDERS: ATTEND Surgery
DX: E66.01 Morbid (severe) obesity due to excess calories (principal); Z71.3 Dietary counseling and surveillance
CPT/HCPCS: 97803; G0463; 99211

== ENCOUNTER → 2018-03-17 | Outpatient (CLI) | payer OTHER ==
[2018-03-17 15:39] VITALS: BP 125/91; PULSE 72; RESP 16; TEMP 97.7; BMI 51.0
--- NOTE | 2018-03-17 16:40 | P.HPBAR ---
Bariatric H&P - History & Physicial H&P Date: 03/17/18 History & Physicial: Visit/CC: sleeve follow-up Patient initial contact: Initial weight: 249.839 kg Initial weight in pounds: 550.80 Height: 5 ft 9 in Initial BMI: 81.3 Last weight: Current weight: 156.943 kg Current weight in pounds: 346.00 Current BMI: 51.0 [place] body weight (based on NIH guidelines): 72.575 kg Excess body weight loss: 52.4% The patient is a 43 year-old M who presents for Bariatric Assessment. Patient presents today for sleeve gastrectomy follow-up. He has some mild complaints of arthritis pains knees and GERD. He has lost approximately 205 pounds. Past Medical History Past Medical History: No Reported History Additional Past Medical History / Comment(s): EDEMA LOWER EXTREMITIES. History of Any Multi-Drug Resistant Organisms: None Reported Past Surgical History: No Surgical Hx Reported, Bariatric Surgery Additional Past Surgical History / Comment(s): SURGERY LEFT LEG FOR CELLULITIS ( 10 YRS AGO), gastric sleeve August 2017 Past Anesthesia/Blood Transfusion Reactions: No Reported Reaction Past Psychological History: Depression Smoking Status: Former smoker Past Alcohol Use History: Rare Additional Past Alcohol Use History / Comment(s): QUIT SMOKING 10 YRS AGO. SMOKED <PPD. SMOKED APPROX 10 YRS. Past Drug Use History: None Reported - Past Family History Father Family Medical History: Cancer Additional Family Medical History / Comment(s): PROSTATE CANCER Mother Family Medical History: AFIB Surgical - Exam Vital Signs Temp Pulse Resp BP 97.7 F 72 16 125/91 03/17/18 15:17 03/17/18 15:17 03/17/18 15:17 03/17/18 15:17 - General well developed, no distress - Abdomen Abdomen: soft, non tender Bariatric Assessment & Plan Plan: Status post sleeve instructed. Patient is doing excellent. He'll continue omeprazole for his GERD symptoms. He'll follow-up in 8 weeks. Bariatric Checklist Checklist: Plan: Checklist: EGD: 1. Hiatal hernia: 2. H. Pylori: HgbA1c: Vitamin D: Smoking: Former smoker Primary care physician referral: Greer ([place]) Psychiatry clearance: Cardiology clearance: Sleep study: Diet journal: VTE risk score: VTE risk level: Rehab needs at discharge:
== END | disposition home or self-care (01) ==
LOC: BARWHC3 13:33
PROVIDERS: ATTEND Surgery
DX: Z09 Encounter for follow-up examination after completed treatment for conditions other than malignant neoplasm (principal); K21.9 Gastro-esophageal reflux disease without esophagitis; F32.9 Major depressive disorder, single episode, unspecified; F41.9 Anxiety disorder, unspecified; M17.0 Bilateral primary osteoarthritis of knee; Z98.84 Bariatric surgery status; Z98.890 Other specified postprocedural states; Z87.891 Personal history of nicotine dependence
CPT/HCPCS: 99211

== ENCOUNTER → 2018-04-02 | Outpatient (CLI) | payer OTHER ==
[2018-04-02 13:57] LABS: HCT 46.9 % (39.0-53.0); HGB 15.3 gm/dL (13.0-17.5); MCH 28.4 pg (25.0-35.0); MCHC 32.7 g/dL (31.0-37.0); MCV 86.7 fL (80.0-100.0); Mean Platelet Volume 7.1; Platelet Count 232 k/uL (150-450); RDW 13.3 % (11.5-15.5); WBC 6.9 k/uL (3.8-10.6)
[2018-04-02 14:33] LABS: ALT 27 U/L (21-72); AST 22 U/L (17-59); Albumin 4.2 g/dL (3.5-5.0); Alkaline Phosphatase 59 U/L (38-126); Anion Gap 9 mmol/L; Blood Urea Nitrogen 19 mg/dL (9-20); Calcium 9.8 mg/dL (8.4-10.2); Carbon Dioxide 31 mmol/L (22-30); Chloride 100 mmol/L (98-107); Glucose 87 mg/dL (74-99); Sodium 140 mmol/L (137-145); Total Bilirubin 0.7 mg/dL (0.2-1.3); Total Protein 7.3 g/dL (6.3-8.2)
[2018-04-02 18:42] LABS: Vitamin D 25 Hydroxy 26.8 ng/mL (30.0-100.0)
[2018-04-02 22:16] LABS: Hemoglobin A1C 4.5 % (4.0-6.0)
== END | disposition home or self-care (01) ==
LOC: LABWHC1 12:53
PROVIDERS: ATTEND Surgery
DX: E66.01 Morbid (severe) obesity due to excess calories (principal); E89.1 Postprocedural hypoinsulinemia; E44.0 Moderate protein-calorie malnutrition; E55.9 Vitamin D deficiency, unspecified
CPT/HCPCS: 36415; 80053; 82306; 82607; 83036; 84443; 85027

== ENCOUNTER → 2018-06-02 | Outpatient (CLI) | payer OTHER ==
[2018-06-02 15:23] VITALS: BP 94/64; PULSE 76; TEMP 98; BMI 50.1
--- NOTE | 2018-06-02 17:21 | P.HPBAR ---
Bariatric H&P - History & Physicial H&P Date: 06/02/18 History & Physicial: Visit/CC: nine month follow up Patient initial contact: Initial weight: 249.839 kg Initial weight in pounds: 550.80 Height: 5 ft 9 in Initial BMI: 81.3 Last weight: Current weight: 153.768 kg Current weight in pounds: 339.00 Current BMI: 50.1 [place] body weight (based on NIH guidelines): 72.575 kg Excess body weight loss: 54.1% The patient is a 43 year-old M who presents for Bariatric Assessment. The patient presents today for sleeve gastrectomy follow-up. He has some minimal GERD. His current BMI is 50. Past Medical History Past Medical History: No Reported History Additional Past Medical History / Comment(s): EDEMA LOWER EXTREMITIES. History of Any Multi-Drug Resistant Organisms: None Reported Past Surgical History: No Surgical Hx Reported, Bariatric Surgery Additional Past Surgical History / Comment(s): SURGERY LEFT LEG FOR CELLULITIS ( 10 YRS AGO), gastric sleeve August 2017 Past Anesthesia/Blood Transfusion Reactions: No Reported Reaction Past Psychological History: Depression Smoking Status: Former smoker Past Alcohol Use History: Rare Additional Past Alcohol Use History / Comment(s): QUIT SMOKING 10 YRS AGO. SMOKED <PPD. SMOKED APPROX 10 YRS. Past Drug Use History: None Reported - Past Family History Father Family Medical History: Cancer Additional Family Medical History / Comment(s): PROSTATE CANCER Mother Family Medical History: AFIB Surgical - Exam Vital Signs Temp Pulse BP 98.0 F 76 94/64 06/02/18 14:18 06/02/18 14:18 06/02/18 14:18 - General well developed, no distress - Eyes PERRL - Abdomen Abdomen: soft, non tender Bariatric Assessment & Plan Plan: Status post sleeve gastrectomy. His GERD is minimal will be observed. He'll follow-up in 4 weeks. Bariatric Checklist Checklist: Plan: Checklist: EGD: 1. Hiatal hernia: 2. H. Pylori: HgbA1c: Vitamin D: Smoking: Former smoker Primary care physician referral: Greer ([place]) Psychiatry clearance: Cardiology clearance: Sleep study: Diet journal: VTE risk score: VTE risk level: Rehab needs at discharge:
== END | disposition home or self-care (01) ==
LOC: BARWHC3 12:46
PROVIDERS: ATTEND Surgery
DX: Z48.815 Encounter for surgical aftercare following surgery on the digestive system (principal); K21.9 Gastro-esophageal reflux disease without esophagitis; Z87.891 Personal history of nicotine dependence; Z98.84 Bariatric surgery status
CPT/HCPCS: 99211

== ENCOUNTER → 2018-07-14 | Outpatient (CLI) | payer OTHER ==
[2018-07-14 13:24] VITALS: BP 122/92; PULSE 87; RESP 16; TEMP 98; BMI 49.6
--- NOTE | 2018-07-14 15:33 | P.HPBAR ---
Bariatric H&P - History & Physicial H&P Date: 07/14/18 History & Physicial: Visit/CC: sleeve follow-up 1 year Patient initial contact: Initial weight: 249.839 kg Initial weight in pounds: 550.80 Height: 5 ft 9 in Initial BMI: 81.3 Last weight: Current weight: 152.407 kg Current weight in pounds: 336.00 Current BMI: 49.6 [place] body weight (based on NIH guidelines): 72.575 kg Excess body weight loss: 54.9% The patient is a 43 year-old M who presents for Bariatric Assessment. Patient presents today for sleeve gastrectomy all a. He is doing very well. He is also another 3 pounds. He's lost approximately 225 pounds since surgery. He's had some mild GERD he denies a significant dysphagia. Past Medical History Past Medical History: No Reported History Additional Past Medical History / Comment(s): EDEMA LOWER EXTREMITIES. History of Any Multi-Drug Resistant Organisms: None Reported Past Surgical History: Bariatric Surgery Additional Past Surgical History / Comment(s): SURGERY LEFT LEG FOR CELLULITIS ( 10 YRS AGO), gastric sleeve August 2017 (Dr. You Alejandro) Past Anesthesia/Blood Transfusion Reactions: No Reported Reaction Past Psychological History: Depression Smoking Status: Former smoker Past Alcohol Use History: Rare Additional Past Alcohol Use History / Comment(s): QUIT SMOKING 10 YRS AGO. SMOKED <PPD. SMOKED APPROX 10 YRS. Past Drug Use History: None Reported - Past Family History Father Family Medical History: Cancer Additional Family Medical History / Comment(s): PROSTATE CANCER Mother Family Medical History: AFIB Surgical - Exam Vital Signs Temp Pulse Resp BP 98 F 87 16 122/92 07/14/18 13:18 07/14/18 13:18 07/14/18 13:18 07/14/18 13:18 - General well developed, no distress - Eyes PERRL - ENT normal pinna - Abdomen Abdomen: soft, non tender Bariatric Assessment & Plan Plan: Status post sleeve yesterday. Patient is doing quite well. His GERD is minimal will be observed. He'll follow-up in 4 weeks. Bariatric Checklist Checklist: Plan: Checklist: EGD: 1. Hiatal hernia: 2. H. Pylori: HgbA1c: Vitamin D: Smoking: Former smoker Primary care physician referral: Greer ([place]) Psychiatry clearance: Cardiology clearance: Sleep study: Diet journal: VTE risk score: VTE risk level: Rehab needs at discharge:
== END ==
LOC: BARWHC3 12:52
PROVIDERS: ATTEND Surgery
DX: Z48.815 Encounter for surgical aftercare following surgery on the digestive system (principal); K21.9 Gastro-esophageal reflux disease without esophagitis; Z87.891 Personal history of nicotine dependence
CPT/HCPCS: 99211

== ENCOUNTER → 2018-08-06 | Outpatient (CLI) | payer OTHER ==
[2018-08-06 08:25] LABS: HCT 48.3 % (39.0-53.0); HGB 15.7 gm/dL (13.0-17.5); MCH 28.7 pg (25.0-35.0); MCHC 32.6 g/dL (31.0-37.0); Platelet Count 259 k/uL (150-450); RBC 5.49 m/uL (4.30-5.90); RDW 13.3 % (11.5-15.5); WBC 7.2 k/uL (3.8-10.6)
[2018-08-06 18:01] LABS: Vitamin D 25 Hydroxy 22.2 ng/mL (30.0-100.0)
[2018-08-06 18:05] LABS: Albumin 4.4 g/dL (3.80-4.90); Albumin/Globulin Ratio 1.83 (1.20-2.10); Anion Gap 7.4 mmol/L (4.00-12.00); Calcium 9.6 mg/dL (8.7-10.3); Carbon Dioxide 32.6 mmol/L (21.6-31.8); Globulin 2.4 g/dL (2.1-3.7); Total Bilirubin 0.9 mg/dL (0.3-1.2); Total Protein 6.8 g/dL (6.2-8.2)
== END | disposition home or self-care (01) ==
LOC: LABWHC1 07:15
PROVIDERS: ATTEND Surgery
DX: E66.01 Morbid (severe) obesity due to excess calories (principal); E44.0 Moderate protein-calorie malnutrition; E55.9 Vitamin D deficiency, unspecified
CPT/HCPCS: 36415; 80053; 82306; 82607; 84425; 84443; 85027

== ENCOUNTER → 2018-09-22 | Outpatient (CLI) | payer OTHER ==
[2018-09-22 13:10] VITALS: BP 126/82; PULSE 78; RESP 16; TEMP 98.2; BMI 48.2
--- NOTE | 2018-09-22 17:51 | P.HPBAR ---
Bariatric H&P - History & Physicial H&P Date: 09/22/18 History & Physicial: Visit/CC: sleeve follow-up Patient initial contact: Initial weight: 249.839 kg Initial weight in pounds: 550.80 Height: 5 ft 9 in Initial BMI: 81.3 Last weight: Current weight: 148.013 kg Current weight in pounds: 326.31 Current BMI: 48.2 [place] body weight (based on NIH guidelines): 72.575 kg Excess body weight loss: 57.4% The patient is a 43 year-old M who presents for Bariatric Assessment. Patient presents today for sleeve gastrectomy fall. He's lost another 10 pounds since his last visit. He's lost in total approximately 225 pounds. He's had some mild GERD and dysphagia with turkey that he ate at [employer]. Past Medical History Past Medical History: No Reported History Additional Past Medical History / Comment(s): EDEMA LOWER EXTREMITIES. History of Any Multi-Drug Resistant Organisms: None Reported Past Surgical History: Bariatric Surgery Additional Past Surgical History / Comment(s): SURGERY LEFT LEG FOR CELLULITIS ( 10 YRS AGO), gastric sleeve August 2017 (Dr. You Alejandro) Past Anesthesia/Blood Transfusion Reactions: No Reported Reaction Past Psychological History: Depression Smoking Status: Former smoker Past Alcohol Use History: Rare Additional Past Alcohol Use History / Comment(s): QUIT SMOKING 10 YRS AGO. SMOKED <PPD. SMOKED APPROX 10 YRS. Past Drug Use History: None Reported - Past Family History Father Family Medical History: Cancer Additional Family Medical History / Comment(s): PROSTATE CANCER Mother Family Medical History: AFIB Surgical - Exam Vital Signs Temp Pulse Resp BP 98.2 F 78 16 126/82 09/22/18 13:07 09/22/18 13:07 09/22/18 13:07 09/22/18 13:07 - General well developed, well nourished, no distress - Eyes PERRL - ENT normal pinna - Neck no masses - Respiratory normal expansion - Cardiovascular Rhythm: regular - Abdomen Abdomen: soft, non tender Bariatric Assessment & Plan Plan: Status post sleeve discharge. Patient GERD is minimal will be observed. He'll follow-up in 2 months. Bariatric Checklist Checklist: Plan: Checklist: EGD: 1. Hiatal hernia: 2. H. Pylori: HgbA1c: Vitamin D: Smoking: Former smoker Primary care physician referral: Percy Muse) Psychiatry clearance: Cardiology clearance: Sleep study: Diet journal: VTE risk score: VTE risk level: Rehab needs at discharge:
== END ==
LOC: BARWHC3 12:09
PROVIDERS: ATTEND Surgery
DX: Z48.815 Encounter for surgical aftercare following surgery on the digestive system (principal); K21.9 Gastro-esophageal reflux disease without esophagitis; Z98.84 Bariatric surgery status; Z87.891 Personal history of nicotine dependence
CPT/HCPCS: 99211

== ENCOUNTER 2020-02-22 12:00 | Emergency (ER) | payer MEDICARE, OTHER ==
[2020-02-22 12:05] VITALS: BP 136/89; PULSE 59; RESP 18; TEMP 97.9
--- NOTE | 2020-02-22 12:44 | ED ---
General Adult HPI - General Chief complaint: Abdominal Pain Stated complaint: lt kidney buring Time Seen by Provider: 02/22/20 12:06 Source: patient, RN notes reviewed Mode of arrival: wheelchair Limitations: no limitations - History of Present Illness Initial comments: Patient is an obese 45-year-old male who presents to the emergency department for a chief complaint of left low back and flank burning sensation. Patient states this has been ongoing for 2 weeks. Patient was diagnosed with a urinary tract infection and has been on 2 courses of antibiotics. States he was changed to Cipro about a week ago by his doctor. Patient states that he has not had any fevers. He does not have dysuria. He denies anything worsening or improving the symptoms.Patient has no other complaints at this time including shortness of breath, chest pain, abdominal pain, nausea or vomiting, headache, or visual changes. - Related Data Home Medications Medication Instructions Recorded Confirmed Furosemide [Lasix] 40 mg PO BID 12/10/16 02/22/20 Ciprofloxacin HCl [Cipro] 500 mg PO BID 02/22/20 02/22/20 Omeprazole 20 mg PO DAILY 02/22/20 02/22/20 Potassium Chloride ER [K-Dur 10] 10 meq PO BID-W/MEALS 02/22/20 02/22/20 Allergies Allergy/AdvReac Type Severity Reaction Status Date / Time amoxicillin Allergy Unknown Rash/Hives Verified 02/22/20 13:14 cephalexin [From Keflex] Allergy Unknown Rash/Hives Verified 02/22/20 13:14 Penicillins Allergy Unknown Rash/Hives Verified 02/22/20 13:14 Iodinated Contrast Media Allergy Rash/Hives Verified 02/22/20 13:14 [Iodinated Contrast- Oral and IV Dye] Review of Systems ROS Statement: Those systems with pertinent positive or pertinent negative responses have been documented in the HPI. ROS Other: All systems not noted in ROS Statement are negative. Past Medical History Past Medical History: No Reported History Additional Past Medical History / Comment(s): EDEMA LOWER EXTREMITIES. History of Any Multi-Drug Resistant Organisms: None Reported Past Surgical History: Bariatric Surgery Additional Past Surgical History / Comment(s): SURGERY LEFT LEG FOR CELLULITIS (10 YRS AGO), gastric sleeve August 2017 (Dr. You Alejandro) Past Anesthesia/Blood Transfusion Reactions: No Reported Reaction Past Psychological History: Depression Smoking Status: Former smoker Past Alcohol Use History: Rare Past Drug Use History: None Reported - Past Family History Father Family Medical History: Cancer Additional Family Medical History / Comment(s): PROSTATE CANCER Mother Family Medical History: AFIB General Exam Limitations: no limitations General appearance: alert, in no apparent distress, other (morbidly obese) Head exam: Present: atraumatic, normocephalic, normal inspection Eye exam: Present: normal appearance, PERRL, EOMI. Absent: scleral icterus, conjunctival injection, periorbital swelling ENT exam: Present: normal exam, mucous membranes moist Neck exam: Present: normal inspection, full ROM. Absent: tenderness, meningismus, lymphadenopathy Respiratory exam: Present: normal lung sounds bilaterally. Absent: respiratory distress, wheezes, rales, rhonchi, stridor Cardiovascular Exam: Present: regular rate, normal rhythm, normal heart sounds. Absent: systolic murmur, diastolic murmur, rubs, gallop, clicks GI/Abdominal exam: Present: soft, normal bowel sounds. Absent: distended, tenderness, guarding, rebound, rigid Back exam: Absent: CVA tenderness (R), CVA tenderness (L) Neurological exam: Present: alert Course Vital Signs 02/22/20 12:01 Temperature 97.9 F Pulse Rate 59 L Respiratory 18 Rate Blood Pressure 136/89 O2 Sat by Pulse 99 Oximetry Medical Decision Making - Medical Decision Making CBC CMP unremarkable. Urinalysis does not show any significant evidence of infection. However there is rare bacteria and culture will be sent. CT abdomen and pelvis without contrast given ALLERGY was obtained to evaluate for kidney stone which was not evident. He did have marked arthropathy noted in his hips which could be the cause of his pain. CT did show a small right pleural effusion, patient has not been taking his "water pill" as directed and will resume this. He denies shortness of breath. He also has possible gallstones or tumefactive sludge however does not have any abdominal or right upper quadrant pain. At this time patient will be discharged home to follow up with primary care. Given his obesity, location of pain, and degenerative disc disease/arthropathy of hips this is likely more musculoskeletal in nature. He will return here for any worsening symptoms. Culture pending. - Lab Data Result diagrams: 02/22/20 12:40 02/22/20 12:40 Lab Results 02/22/20 02/22/20 02/22/20 Range/Units 12:40 12:40 12:40 WBC 10.1 (3.8-10.6) k/uL RBC 5.49 (4.30-5.90) m/uL Hgb 16.4 (13.0-17.5) gm/dL Hct 50.5 (39.0-53.0) % MCV 92.0 (80.0-100.0) fL MCH 29.8 (25.0-35.0) pg MCHC 32.4 (31.0-37.0) g/dL RDW 14.7 (11.5-15.5) % Plt Count 259 (150-450) k/uL Neutrophils % 77 % Lymphocytes % 14 % Monocytes % 5 % Eosinophils % 1 % Basophils % 1 % Neutrophils # 7.8 H (1.3-7.7) k/uL Lymphocytes # 1.4 (1.0-4.8) k/uL Monocytes # 0.5 (0-1.0) k/uL Eosinophils # 0.1 (0-0.7) k/uL Basophils # 0.1 (0-0.2) k/uL Sodium 137 (137-145) mmol/L Potassium 4.3 (3.5-5.1) mmol/L Chloride 102 (98-107) mmol/L Carbon Dioxide 28 (22-30) mmol/L Anion Gap 7 mmol/L BUN 14 (9-20) mg/dL Creatinine 0.84 (0.66-1.25) mg/dL Est GFR (CKD-EPI)AfAm >90 (>60 ml/min/1.73 sqM) Est GFR (CKD-EPI)NonAf >90 (>60 ml/min/1.73 sqM) Glucose 94 (74-99) mg/dL Calcium 9.1 (8.4-10.2) mg/dL Total Bilirubin 0.8 (0.2-1.3) mg/dL AST 23 (17-59) U/L ALT 13 (4-49) U/L Alkaline Phosphatase 74 (38-126) U/L Total Protein 7.5 (6.3-8.2) g/dL Albumin 4.2 (3.5-5.0) g/dL Amylase 45 (30-110) U/L Lipase 45 (23-300) U/L Urine Color Yellow Urine Appearance Cloudy (Clear) Urine pH 6.5 (5.0-8.0) Ur Specific [place] 1.026 (1.001-1.035) Urine Protein Trace H (Negative) Urine Glucose (UA) Negative (Negative) Urine Ketones Negative (Negative) Urine Blood Negative (Negative) Urine Nitrite Negative (Negative) Urine Bilirubin Negative (Negative) Urine Urobilinogen 2.0 (<2.0) mg/dL Ur Leukocyte Esterase Negative (Negative) Urine WBC 2 (0-5) /hpf Ur Squamous Epith Cells 7 H (0-4) /hpf Urine Bacteria Rare H (None) /hpf Urine Mucus Occasional H (None) /hpf Disposition Clinical Impression: Back pain Disposition: HOME SELF-CARE Condition: Good Additional Instructions: Please follow up with primary care in 1-2 days. Follow up on urine culture results. Return to the emergency department for any worsening symptoms. Is patient prescribed a controlled substance at d/c from ED?: No Referrals: Ty Diaz MD [Primary Care Provider] - 1-2 days Time of Disposition: 14:11
[2020-02-22 12:48] LABS: Basophils # (A) 0.1 k/uL (0-0.2); Basophils % (A) 1 %; Eosinophils # (A) 0.1 k/uL (0-0.7); Eosinophils % (A) 1 %; HCT 50.5 % (39.0-53.0); HGB 16.4 gm/dL (13.0-17.5); Lymphocytes # (A) 1.4 k/uL (1.0-4.8); Lymphocytes % (A) 14 %; MCH 29.8 pg (25.0-35.0); MCHC 32.4 g/dL (31.0-37.0); Mean Platelet Volume 7.2; Monocytes # (A) 0.5 k/uL (0-1.0); Monocytes % (A) 5 %; Neutrophils # (A) 7.8 k/uL (1.3-7.7); Neutrophils % (A) 77 %; Platelet Count 259 k/uL (150-450); RBC 5.49 m/uL (4.30-5.90); RDW 14.7 % (11.5-15.5); WBC 10.1 k/uL (3.8-10.6)
[2020-02-22 12:58] LABS: Appearance,Urine Cloudy (Clear); Bacteria,Urine Rare /hpf; Bilirubin,Urine Negative (Negative); Blood,Urine Negative (Negative); Color,Urine Yellow; Glucose,Urine (UA) Negative (Negative); Ketones,Urine Negative (Negative); Leukocyte Esterase,Urine Negative (Negative); Mucus,Urine Occasional /hpf; Nitrite,Urine Negative (Negative); PH, Urine 6.5 (5.0-8.0); Protein,Urine Trace (Negative); Specific Gravity,Urine 1.026 (1.001-1.035); Squamous Epithelial Cell,Urine 7 /hpf (0-4); WBC,Urine 2 /hpf (0-5)
[2020-02-22 13:00] LABS: ALT 13 U/L (4-49); AST 23 U/L (17-59); African American GFR (CKD) >90 (>60 ml/min/1.73 sqM); Albumin 4.2 g/dL (3.5-5.0); Alkaline Phosphatase 74 U/L (38-126); Amylase 45 U/L (30-110); Anion Gap 7 mmol/L; Blood Urea Nitrogen 14 mg/dL (9-20); Calcium 9.1 mg/dL (8.4-10.2); Carbon Dioxide 28 mmol/L (22-30); Chloride 102 mmol/L (98-107); Glucose 94 mg/dL (74-99); Non-African American GFR(CKD) >90 (>60 ml/min/1.73 sqM); Potassium 4.3 mmol/L (3.5-5.1); Sodium 137 mmol/L (137-145); Total Bilirubin 0.8 mg/dL (0.2-1.3); Total Protein 7.5 g/dL (6.3-8.2)
--- NOTE | 2020-02-22 13:51 | CT ---
EXAMINATION TYPE: CT abdomen pelvis wo con DATE OF EXAM: 02/22/2020 COMPARISON: None HISTORY: Lt flank pain CT DLP: 2845 mGycm Automated exposure control for dose reduction was used. TECHNIQUE: Helical acquisition of images from the lung bases through the pelvis. FINDINGS: Lack of intravenous contrast could compromise sensitivity. LUNG BASES: There is a small right pleural effusion. AORTA: No significant abnormality is appreciated. LIVER/GB: Dependent portion of the gallbladder shows some high attenuation possibly due to tumefactiv e sludge or gallstones, liver shows no mass. PANCREAS: No significant abnormality is seen. SPLEEN: No significant abnormality is seen. ADRENALS: No significant abnormality is seen. KIDNEYS: No significant abnormality is seen. REPRODUCTIVE ORGANS: Prosthetic calcifications are present.. URINARY BLADDER: No significant abnormality is seen. BOWEL: No significant abnormality is seen. Postop changes are noted to the stomach status post gastr ic sleeve. FREE AIR: No Free Air is visible. ASCITES: None visible. PELVIC ADENOPATHY: None visualized. RETROPERITONEAL ADENOPATHY: No Retroperitoneal Adenopathy visible. OSSEOUS STRUCTURES: Degenerative disc changes are noted in the lumbar spine, there is a spinal curva ture, facet arthropathy. Marked arthropathy noted in the hips. IMPRESSION: RIGHT PLEURAL EFFUSION, POSSIBLE GALLSTONES OR TUMEFACTIVE SLUDGE, NONSPECIFIC FINDINGS DESCRIBED ABO VE, DEGENERATIVE DISC DISEASE. NONCONTRAST EXAM.
== END 2020-02-22 14:37 | disposition home or self-care (01) ==
LOC: EC 12:00
DX: M54.9 Dorsalgia, unspecified (principal); M16.0 Bilateral primary osteoarthritis of hip; J90 Pleural effusion, not elsewhere classified; E66.01 Morbid (severe) obesity due to excess calories; Z79.899 Other long term (current) drug therapy; Z88.0 Allergy status to penicillin; Z88.1 Allergy status to other antibiotic agents; Z91.041 Radiographic dye allergy status; Z98.84 Bariatric surgery status; Z68.43 Body mass index [BMI] 50.0-59.9, adult; Z87.891 Personal history of nicotine dependence; Z87.2 Personal history of diseases of the skin and subcutaneous tissue
CPT/HCPCS: 36415; 74176; 80053; 81001; 82150; 83690; 85025; 99284